=== PATIENT | female | born 1965 | race Caucasian/White ===

== ENCOUNTER → 2016-03-24 | Outpatient (CLI) | payer OTHER ==
[~2016-03-24] MED LIST: ALBU17IN2 INH; BENA25TA PO; BUPR150T5 PO; CELE20TA PO; ECOT81TA2 PO; EPIT200T PO; FISH5CAP PO; HYDR-3716 PO; IBUP80TA PO; NEUR300C PO; OMEP40CA2 PO; PRAZ1CAP PO; SIMV80TA PO; TRAM50TA2 PO; TRAZ100T4 PO; Vitamin D PO; ZOCO20TA PO; albuteral inhaler INH; chantix; motrin PO; vitamin d2 PO
--- NOTE | 2016-03-24 09:09 | REP ---
ABDOMINAL AORTIC SONOGRAPHY: History: Follow up abdominal aortic aneurysm. Comparison study August 08, 2015. Findings: Abdominal aorta measures 2.3 x 2.5 cm in AP by transverse dimension at the diaphragmatic hiatus. At the main renal artery origins, these dimensions are 2.1 x 2.0 cm. The mid infrarenal abdominal aorta measures 2.3 x 2.3 cm. There is an aneurysm of the distal abdominal aorta measuring 3.9 cm in AP dimension by 3.9 cm transverse. The aneurysmal segment is 4.7 cm in length. The right and left common iliac arteries are not aneurysmal measuring 0.8 and 0.9 cm in AP dimension respectively. There is some thrombus visible posteriorly. Aneurysm is somewhat better visualized on today's images and is not definitely changed. Its transverse dimension is unchanged. Impression: 3.9 x 3.9 cm infrarenal abdominal aortic aneurysm. Previous AP dimension by ultrasound is 3.[address] August 09, 1925, 3.4 cm. Signed by Erick Peng MD 03/24/2016 10:30 A
== END ==
LOC: M RAD 07:29
PROVIDERS: ATTEND Physician Assistant Medical
DX: I71.4 Abdominal aortic aneurysm, without rupture (principal)

== ENCOUNTER → 2016-06-05 | Outpatient (CLI) | payer OTHER ==
[~2016-06-05] MED LIST changes: -BENA25TA PO; +BENA25TA9 PO; -ECOT81TA2 PO; +ECOT81TA5 PO
[2016-06-05 10:51] LABS: BASO % 0.4 % (0.0-1.0); EOS # 0.3 K/mm3 (0.0-0.50); EOS % 2.8 % (0.0-3.0); LYMPH # 3.1 K/mm3 (1.5-4.5); LYMPH % 26.4 % (24.0-44.0); MEAN CORPUSCULAR HEMOGLOBIN 29.4 pg (27.0-33.0); MEAN CORPUSCULAR VOLUME 88.9 fl (80.0-96.0); MONO # 0.5 K/mm3 (0.0-0.8); MONO % 4.8 % (0.0-5.0); NEUTROPHILS # 7.3 K/mm3 (1.8-7.7); NEUTROPHILS % 64.5 % (36.0-66.0); RED CELL DISTRIBUTION WIDTH 13.2 % (11.5-14.5); WHITE BLOOD COUNT 11.3 K/mm3 (4.0-10.0)
[2016-06-05 11:11] LABS: ALBUMIN 3.7 GM/DL (3.2-5.2); ALBUMIN/GLOBULIN RATIO 1.28 (1.00-1.93); ALKALINE PHOSPHATASE 118 U/L (45-117); ALT/SGPT 20 U/L (12-78); ANION GAP 2 MEQ/L (8-16); AST/SGOT 11 U/L (15-37); BILIRUBIN,TOTAL 0.3 MG/DL (0.2-1.0); BLOOD UREA NITROGEN 13 MG/DL (7-18); CARBON DIOXIDE LEVEL 30 MEQ/L (21-32); CHLORIDE LEVEL 108 MEQ/L (98-107); CHOLESTEROL LEVEL 180 MG/DL (<200); CREATININE FOR GFR 0.71 MG/DL (0.55-1.02); GLOMERULAR FILTRATION RATE > 60.0 (>51); GLUCOSE, FASTING 105 MG/DL (70-105); POTASSIUM SERUM 4.5 MEQ/L (3.5-5.1); SODIUM LEVEL 140 MEQ/L (136-145); TOTAL PROTEIN 6.6 GM/DL (6.4-8.2); TRIGLYCERIDES LEVEL 191 MG/DL (<150)
== END ==
LOC: M LAB 10:05
PROVIDERS: ATTEND Physician Assistant Medical
DX: E78.2 Mixed hyperlipidemia (principal)

== ENCOUNTER → 2016-06-12 | Outpatient (CLI) | payer OTHER ==
[~2016-06-12] MED LIST changes: +CRES40TA PO; +RANI15TA PO
--- NOTE | 2016-06-12 16:06 | REP ---
Chest two views HISTORY: Smoking history Comparison: 08/01/2015 The lungs are clear. The heart is normal in size. The pulmonary vasculature is normal in appearance. The bony structure is intact. IMPRESSION: No acute disease. Signed by Mario Posadas MD 06/12/2016 03:57 P
== END ==
LOC: M RAD 15:45
PROVIDERS: ATTEND Physician Assistant Medical
DX: Z72.0 Tobacco use (principal)

== ENCOUNTER 2016-06-14 10:39 | Emergency (ER) | payer OTHER ==
[~2016-06-14] VITALS: Ht 154.9 cm; Wt 84.4 kg
[~2016-06-14 10:39] MED LIST changes: -CRES40TA PO; -RANI15TA PO
[2016-06-14 10:40] VITALS: BP 144/75
[2016-06-14] MEDS ORDERED: RANI15TA PO (10:54)
[2016-06-14] MEDS ORDERED: CRES40TA PO (10:54)
[2016-06-14] MEDS ORDERED: IBUPROFEN 800 MG TAB PO ONE (11:15)
[2016-06-14] MEDS ORDERED: IBUP80TA PO (11:17)
== END 2016-06-14 11:28 | disposition home or self-care (01) ==
LOC: M ED 11:04
DX: M70.71 Other bursitis of hip, right hip (principal); Z79.899 Other long term (current) drug therapy; Z88.5 Allergy status to narcotic agent; Z88.8 Allergy status to other drugs, medicaments and biological substances

== ENCOUNTER → 2016-07-10 | Outpatient (CLI) | payer OTHER ==
[~2016-07-10] MED LIST changes: +CRES40TA PO; +RANI15TA PO
--- NOTE | 2016-07-10 09:08 | REP ---
MR LUMBAR SPINE WITHOUT CONTRAST: HISTORY: Back pain. COMPARISON: 02/15/2016 Decreased signal intensity on T2-weighted images is present in the L2-3 through L5-S1 intervertebral discs. The discs are decreased in height. These findings are consistent with disc degeneration. There is no disc bulge or herniation at the L1-2 and L2-3 levels. The nerves exit the neural foramina without compression. A diffuse disc bulge is present at the L3-4 level. There is minimal compression of the thecal sac. The L3 nerves exit the neural foramina without compression. A diffuse disc bulge and small central disc protrusion are present at the L4-5 level. There is minimal compression of the thecal sac. There is hypertrophy of the posterior articulating facets. The L4 nerves exit the neural foramina without compression. A diffuse disc bulge is present at the L5-S1 level. There is minimal compression of the thecal sac. The L4 nerves exit the neural foramina without compression. The conus medullaris is normal in appearance terminating at the level of the L1-2 intervertebral disc. Normal signal intensity is present in the lumbar vertebral bodies. A 4 cm abdominal aortic aneurysm is present. IMPRESSION: 1. Diffuse disc bulges at the L3-4 and L5-S1 levels with minimal thecal sac compression. 2. Diffuse disc bulge and small central disc protrusion at the L4-5 level with minimal thecal sac compression. 3. 4 cm abdominal aortic aneurysm. Ultrasound may be helpful for further evaluation. There is no significant change compared to the previous study. Signed by Mario Posadas MD 07/10/2016 09:37 A
== END ==
LOC: M RAD 07:11
PROVIDERS: ATTEND Physician Assistant Medical
DX: M54.5 Low back pain (principal)

== ENCOUNTER → 2016-09-18 | Outpatient (CLI) | payer OTHER ==
[~2016-09-18] MED LIST changes: +BENA25TA10 PO; -BENA25TA9 PO; +TRAZ-136 PO; -TRAZ100T4 PO
[2016-09-18 09:09] LABS: BASO # 0.1 K/mm3 (0.0-0.2); BASO % 1.1 % (0.0-1.0); EOS # 0.3 K/mm3 (0.0-0.50); EOS % 2.7 % (0.0-3.0); LYMPH # 3.4 K/mm3 (1.5-4.5); LYMPH % 32.3 % (24.0-44.0); MEAN CORPUSCULAR HEMOGLOBIN 30.2 pg (27.0-33.0); MEAN CORPUSCULAR HGB CONC 33.5 g/dl (32.0-36.5); MEAN CORPUSCULAR VOLUME 90.3 fl (80.0-96.0); MONO # 0.6 K/mm3 (0.0-0.8); MONO % 5.7 % (0.0-5.0); NEUTROPHILS # 5.9 K/mm3 (1.8-7.7); NEUTROPHILS % 56.6 % (36.0-66.0); RED CELL DISTRIBUTION WIDTH 12.8 % (11.5-14.5); WHITE BLOOD COUNT 10.4 K/mm3 (4.0-10.0)
[2016-09-18 10:27] LABS: ALKALINE PHOSPHATASE 129 U/L (45-117); ALT/SGPT 22 U/L (12-78); ANION GAP 7 MEQ/L (8-16); AST/SGOT 12 U/L (15-37); BILIRUBIN,TOTAL 0.4 MG/DL (0.2-1.0); BLOOD UREA NITROGEN 21 MG/DL (7-18); CALCIUM LEVEL 9.2 MG/DL (8.5-10.1); CARBON DIOXIDE LEVEL 28 MEQ/L (21-32); CHLORIDE LEVEL 106 MEQ/L (98-107); CREATININE FOR GFR 0.85 MG/DL (0.55-1.02); GLOMERULAR FILTRATION RATE > 60.0 (>51); GLUCOSE, FASTING 86 MG/DL (70-105); POTASSIUM SERUM 4.6 MEQ/L (3.5-5.1); SODIUM LEVEL 141 MEQ/L (136-145)
[2016-09-18 10:28] LABS: ALBUMIN 3.9 GM/DL (3.2-5.2); ALBUMIN/GLOBULIN RATIO 1.15 (1.00-1.93); TOTAL PROTEIN 7.3 GM/DL (6.4-8.2)
[2016-09-18 10:38] LABS: CHOLESTEROL LEVEL 185 MG/DL (<200); TRIGLYCERIDES LEVEL 140 MG/DL (<150)
[2016-09-18 10:52] LABS: ALBUMIN 4.35 GM/DL (3.29-5.55); ALBUMIN % 59.6 % (55.8-66.1); GAMMA GLOBULIN % 11.9 % (11.1-18.8)
[2016-09-18 10:53] LABS: TOTAL PROTEIN 7.3 GM/DL (6.4-8.2)
[2016-09-18 10:59] LABS: FERRITIN 114 NG/ML (8-252)
[2016-09-20 00:08] LABS: Lyme Disease IgG/IgM Antibodie <0.91 ISR (0.00-0.90); Lyme Disease IgM Ab Quantitati <0.80 index (0.00-0.79)
== END ==
LOC: M LAB 08:34
PROVIDERS: ATTEND Physician Assistant Medical
DX: E78.2 Mixed hyperlipidemia (principal)

== ENCOUNTER → 2016-09-18 | Outpatient (CLI) | payer OTHER ==
--- NOTE | 2016-09-18 08:04 | REP ---
Clinical: Abdominal aortic aneurysm. Comparison: 03/24/2016. Findings: Evaluation is limited due to overlying bowel gas. An infrarenal abdominal aortic aneurysm is identified measuring 4.1 x 4.5 cm diameter and approximately 4.5 cm in craniocaudal length and may be slightly increased when compared to prior examination when measuring 3.9 x 3.9 cm diameter. Proximal aorta 2.3 x 2.5 cm diameter Mid aorta 3.4 x 3.5 cm diameter Distal aorta 4.1 x 4.5 cm diameter Right common iliac artery 1.4 x 0.8 cm diameter Left common iliac artery 1.7 x 1.1 cm diameter Impression: Known infrarenal abdominal aortic aneurysm appears slightly increased in diameter when compared to prior examination. Signed by Jony Yoon MD 09/18/2016 07:56 A
== END ==
LOC: M RAD 07:04
PROVIDERS: ATTEND Surgery
DX: I71.4 Abdominal aortic aneurysm, without rupture (principal)

== ENCOUNTER → 2016-10-09 | Outpatient (REF) | payer OTHER | LOC: M SFHCWAGY 10:32 | PROVIDERS: ATTEND Nurse Practitioner Women's Health | DX: Z12.4 Encounter for screening for malignant neoplasm of cervix (principal) ==

== ENCOUNTER → 2016-10-09 | Outpatient (CLI) | payer OTHER ==
--- NOTE | 2016-10-09 11:26 | REPMRS ---
Patient History The patient states she had a clinical breast exam in Patient is postmenopausal. Family history of prostate cancer in father. Digital Woman Screen Mammo: October 09, 2016 - Exam #: [id number] Bilateral CC and MLO view(s) were taken. Technologist: Cori Wharton, Technologist Prior study comparison: August 28, 2014, bilateral digital mammo screening bilat, performed at [facility]. FINDINGS: The breast tissue is extremely dense which could obscure a lesion on mammography. There is no evidence of cancer on this mammogram.Large coarse benign appearing calcifications are present. No significant changes when compared with prior studies. ASSESSMENT: BI-RADS/ACR category 2 mammogram. Benign finding(s). Recommendation Routine screening mammogram of both breasts in 1 year (for women over age 40). This mammogram was interpreted with the aid of an FDA-approved computer-aided dectection system. Electronically Signed By: Fantasma Woodson MD 10/09/16 [id number]
== END ==
LOC: M WHC 10:14
PROVIDERS: ATTEND Nurse Practitioner Women's Health
DX: Z12.31 Encounter for screening mammogram for malignant neoplasm of breast (principal)